=== PATIENT | female | born 1965 | race Caucasian/White ===

== ENCOUNTER 2017-02-03 00:13 | Emergency (ER) | payer OTHER ==
[~2017-02-03] VITALS: Ht 157.5 cm; Wt 61.4 kg
[2017-02-03 00:16] VITALS: BP 116/76; PULSE 77; RESP 16; O2SAT 98
--- NOTE | 2017-02-03 00:54 | ED.REPORT ---
HPI-Abd Pain F 40 and Over Date of Service Feb 03, 2017 ED Provider: Dr. Chauhan The pt is a 51 y/o female with a hx of partial hysterectomy who presents to the ED complaining of constant lower abdominal cramping, onset a month ago that significantly worsened today. Associated sx include bloating and intermittent shooting abdominal pain that radiates to her back. She also reports clear nasal drainage earlier today. She denies constipation, diarrhea, decreased appetite and fluid intake. Her last menstrual period was several years ago. Nursing Notes Stated Complaint: ABDOMINAL PAIN Chief Complaint: Female Abdominal Pain Nursing Notes Reviewed: Yes Allergies: Coded Allergies: No Known Allergies (Unverified , 02/03/17) General Time Seen by MD: 00:55 Chief Complaint Abdominal pain Hx Obtained From: Patient Arrived By: Walk-in Sudden in Onset?: Yes Onset Occurred: More than a week ago... (1 month) Symptom Duration: Since onset Progression since Onset: Constant Location: : Abdomen lower Quality: Painful Radiation: : Back Severity: Current: Mild Severity: Maximum: Mild Recent Healthcare: No recent doctor visit Past Medical History Past Medical History none reported Past Surgical History Reports: Hysterectomy (partial) Smoking History Current Every Day Smoker Social History Alcohol Use: Denies alcohol use Drug Use: Denies drug use Other Social History: Good social support Ambulatory Status Independent Review of Systems Reports: bloating Reports: clear nasal drainage Denies: decreased appetite and fluid intake GI: Reports: Abdominal pain (constant lower abdominal cramping with intermittent shooting abdominal pain radiating to the back), Denies: Constipation, Diarrhea Musculoskeletal: Reports: Back pain Complete sys rev & neg: except as marked. Physical Exam Vital Signs Vital Signs (First) Date Time Temp Pulse Resp B/P Pulse Ox O2 Delivery O2 Flow Rate FiO2 02/03/17 00:16 36.4 77 16 116/76 98 Initial VS: Reviewed, Vital signs normal Head / Eyes: Atraumatic, Normocephalic Neck: Supple, Non-tender, Full range of motion Extremities: Vascular intact, Neuro intact, No swelling, No tenderness Skin: Warm, Dry, No cyanosis Neurologic: Alert, Oriented, Nonfocal General/Constitutional: Awake, Alert, Well appearing, Cooperative Respiratory / Chest: Atraumatic, Breath sounds NL, Breath sounds = bilat, No respiratory distress, No rales, No rhonchi, No wheezing Cardiovascular: Heart rate NL, Regular rhythm, Heart sounds NL, No gallop, No murmurs, No rubs Abdomen: Atraumatic, Soft, BS normoactive, No palpable mass Tenderness/Guarding/Rebound: Positive: Tender suprapubic Lower abdominal tenderness without guarding. Back: Atraumatic, Inspection NL, Full range of motion Bilateral lower flank tenderness to percussion. Interpretation & Diagnostics Lab Results Interpretation Result Diagram: 02/03/17 0130 02/03/17 0130 Test 02/03/17 01:30 White Blood Count 12.6th/mm3 (3.8-10.1) Red Blood Count 4.21mil/mm3 (3.90-5.20) Hemoglobin 13.1g/dL (12.0-15.6) Hematocrit 38.2% (35.0-46.0) Mean Corpuscular Volume 90.7fL (81-100) Mean Corpuscular Hemoglobin 31.1pg (27.0-35.0) Mean Corpuscular Hemoglobin Concent 34.3% (32.0-37.0) Red Cell Distribution Width 12.8% (12.3-15.4) Platelet Count 231bil/L (150-400) Neutrophils (%) (Auto) 61.4% (40-74) Lymphocytes (%) (Auto) 27.1% (14-46) Monocytes (%) (Auto) 8.4% (4-12) Eosinophils (%) (Auto) 2.7% (0-5) Basophils (%) (Auto) 0.2% (0-3) Urine Color Yellow (YELLOW) Urine Appearance Clear (CLEAR,HAZY) Urine pH 6.0 (5.0-8.0) Urine Specific [place] 1.015 (1.003-1.035) Urine Protein Negativemg/dL (NEG,TRACE) Urine Glucose (UA) Negativemg/dL (NEGATIVE) Urine Ketones Negativemg/dL (NEGATIVE) Urine Occult Blood Small (NEGATIVE) Urine Nitrite Negative (NEGATIVE) Urine Bilirubin Negative (NEGATIVE) Urine Urobilinogen Normalmg/dL (NORMAL) Urine Leukocyte Esterase Negative (NEGATIVE) Urine RBC 0-2/hpf (0-2) Urine WBC 0-5/hpf (0-5) Urine Epithelial Cells Occasional/hpf (NONE-MOD) Urine Crystals None seen (NONE SEEN) Urine Bacteria None/hpf (NONE-FEW) Urine Hyaline Casts None/lpf (NONE) Urine Granular Casts None seen (NONE SEEN) Urine Waxy Casts None seen (NONE SEEN) Urine Red Blood Cell Casts None seen (NONE SEEN) Urine White Blood Cell Casts None seen (NONE SEEN) Urine Mucus None seen (None Seen) Urine Trichomonas None seen (NONE SEEN) Urine Yeast None (NONE SEEN) Urinalysis Comment None Urine Culture Reflexed Not indicated Sodium Level 139mEq/L (134-144) Potassium Level 4.0mEq/L (3.5-5.2) Chloride Level 103mEq/L (97-108) Carbon Dioxide Level 25mmol/L (18-29) Blood Urea Nitrogen 10mg/dL (6-24) Creatinine 0.62mg/dL (0.57-1.00) Estimat Glomerular Filtration Rate 147mL/min (>59) Glucose Level 106mg/dL (60-99) Calcium Level 8.9mg/dL (8.5-10.1) Magnesium Level 2.1mg/dL (1.6-2.6) Total Bilirubin 0.2mg/dL (0.0-1.2) Aspartate Amino Transf (AST/SGOT) 14U/L (0-50) Alanine Aminotransferase (ALT/SGPT) 15U/L (0-32) Alkaline Phosphatase 58U/L (25-150) Total Protein 6.6g/dL (6.4-8.4) Albumin 3.8g/dL (3.4-5.0) Lipase 53U/L (13-60) Hold Brenner Top Tube Received (Received) Lab Results Interpretation: Elevated white blood count CT Abd / Pelvis Interpretation Conclusion: 1. Normal appendix. No free air, bowel obstruction, or gross intestinal inflammation. 2. Cholecystectomy and hysterectomy. Study type: Abdominal CT IV contrast Interpretation / Wet Read by: Interpret - Radiologist Re-Eval/Medical Decision Med Decision/Clinical Course 51-year-old female whose care was initiated by Dr. Chauhan and turned over to me while awaiting labs and CT scan. No serious causes for hope for her abdominal pain. She is being discharged home and will follow up with her primary provider and with GI. Please see discharge instructions further details. Source of Hx: Old records Re-Evaluation/Progress : Time of Eval: 03:35 Re-Evaluation/Progress Note: Patient rechecked by Dr. Coppola. Discussed plan for discharge. Patient understands and agrees with plan. F/U instructions and RTER warnings given. All questions addressed at this time. Counseled Regarding: Diagnosis, Lab results, Need for follow-up, When/why to return to ED Discharge & Departure Shift Change Sign-Out Patient Care Transferred: Yes Discussed Complaint(s): Yes Laboratory Evaluation: Ordered, not yet done Imaging Studies: Ordered, not yet done Primary Impression: Abdominal pain Abdominal location: generalized Qualified Code: R10.84 - Generalized abdominal pain Disposition: Home Discharge Condition All VS Reviewed: Yes Condition: Stable Patient Instructions: Chronic Abdominal Pain (ED) Additional Instructions: No serious cause of your abdominal pain is found. Labs are normal. The CT scan is normal. I suspect that you may have some degree of "irritable bowel". Your primary doctor can assist you in managing this. I would also recommend a GI consultation, see referral below. Call me at [phone] between the hours of 9 PM and 6 AM for the next 2 nights if you have any questions or concerns about this visit. Referrals: Noman Tapia DO (PCP) Black Geller MD Care Transferred to: Dr. Coppola Care Transferred at: 02:30 Scribe Attestation Portions of this note were transcribed by Paulette Woods and Leana Conway. I, , personally performed the history,physical exam and medical decision- making;I reviewed and confirmed the accuracy of the information in the transcribed note. Signed by Louis Daly. 02/02/17 copies to: Black Geller MD; Noman Tapia Donald L MD Feb 03, 2017 00:53 Paulette Woods Feb 03, 2017 01:02 Leana Conway Feb 03, 2017 03:36 Gamal Coppola MD Feb 03, 2017 03:45
[2017-02-03 01:51] LABS: BASOPHILS % (AUTO) 0.2 % (0-3); EOSINOPHILS % (AUTO) 2.7 % (0-5); MONOCYTES % (AUTO) 8.4 % (4-12); Mean Corpuscular Hemoglobin 31.1 pg (27.0-35.0); Mean Corpuscular Volume 90.7 fL (81-100); NEUTROPHILS % (AUTO) 61.4 % (40-74); Platelet Count 231 bil/L (150-400)
[2017-02-03 02:01] LABS: APPEARANCE,URINE CLEAR (CLEAR,HAZY); COLOR,URINE YELLOW (YELLOW); OCCULT BLOOD,URINE SMALL (NEGATIVE); UROBILINOGEN,URINE NORMAL (NORMAL)
[2017-02-03 02:18] LABS: Magnesium 2.1 mg/dL (1.6-2.6)
[2017-02-03] MEDS ORDERED: 0.9% Sodium Chloride 500 ML IV ONE (03:05)
[2017-02-03] MEDS ORDERED: Ketorolac 15 mg/mL Inj IVPUSH ONE (03:05)
[2017-02-03 04:05] VITALS: BP 114/71; PULSE 71; RESP 18; O2SAT 99
--- NOTE | 2017-02-03 09:29 | DRSVH ---
PROCEDURE: CT ABDOMEN AND PELVIS WITH CONTRAST ([id number]) INDICATIONS: Bilateral lower abdominal pain. TECHNIQUE: After the administration of intravenous contrast, 5 mm thick sections acquired from the diaphragm to the symphysis. 5 mm coronal and sagittal reformats were acquired. For radiation dose reduction, the following was used: automated exposure control, adjustment of mA and/or kV according to patient siz e. COMPARISON: None. FINDINGS: Image quality: Excellent. ABDOMEN: Lung bases: Lung bases are clear. Heart size is normal. Solid organs: Liver and spleen are normal in size and enhancement. Gallbladder is surgically absent . Biliary system is non dilated. Pancreas enhances normally. No adrenal nodules. Kidneys demonstr ate normal size and enhancement, without hydronephrosis. Peritoneum and bowel: Appendix is normal. Bowel loops demonstrate normal wall thickness and caliber. Moderate amount of stool in colon. No free fluid or air. Nodes and vessels: No retroperitoneal or mesenteric adenopathy by size criteria. Aorta and inferior vena cava are normal in size. Miscellaneous: No ventral hernias. PELVIS: Genitourinary: Bladder wall thickness is normal. Uterus is absent. No adnexal mass. No pathological free fluid. Miscellaneous: No inguinal hernias or adenopathy. Bones: No suspicious bony lesions. No vertebral body compression fractures. IMPRESSION: 1. No definitive CT findings to explain bilateral lower abdominal pain. 2. Normal appendix. 3. Hysterectomy. No adnexal mass or pathological free fluid. No significant discrepancy with the community relations advisor radiology preliminary report. Dictated by: Erinn Motta M.D. on 02/03/2017 at 9:23 Approved by: Erinn Motta M.D. on 02/03/2017 at 9:27
== END 2017-02-03 04:07 | disposition home or self-care (01) ==
LOC: SED 00:13
DX: R10.84 Generalized abdominal pain (principal); F17.200 Nicotine dependence, unspecified, uncomplicated; Z90.710 Acquired absence of both cervix and uterus
CPT/HCPCS: 36415; 74177; 80053; 81000; 83690; 83735; 85025; 96374; 99285; J1885; J7040; Q9967